=== PATIENT | male | born 1955 | race American Indian/Alaskan Native ===

== ENCOUNTER 2019-05-13 13:53 | Inpatient (IN) | payer OTHER ==
[2019-05-13] MEDS ORDERED: NACL 0.9% 500 ML 500 ML IV ONE (14:02)
[2019-05-13] MEDS ORDERED: NACL 0.9% 1000 ML IV ONE (14:17)
[2019-05-13] MEDS ORDERED: TYLENOL PO ONE (14:18)
[2019-05-13 14:30] LABS: Basophils # (Auto) 0.1 K/mm3 (0.0-0.1); Eosinophils % (Auto) 0.4 % (0.0-4.3); Hematocrit 42.5 % (35.5-45.6); Hemoglobin 14.5 gm/dl (11.8-15.2); Lymphocytes # (Auto) 0.8 K/mm3 (1.2-5.4); Lymphocytes % (Auto) 8.1 % (13.4-35.0); Mean Corpuscular HGB Conc 34 % (32-34); Mean Corpuscular Volume 82 fl (84-94); Monocytes # (Auto) 0.6 K/mm3 (0.0-0.8); Monocytes % (Auto) 5.8 % (0.0-7.3); Platelet Count 201 K/mm3 (140-440); Red Blood Count 5.16 M/mm3 (3.65-5.03); Red Cell Distribution Width 13.8 % (13.2-15.2)
[2019-05-13 14:39] LABS: INR 1.18 (0.87-1.13)
[2019-05-13 14:52] LABS: Albumin 3.9 g/dL (3.9-5); Calcium 9.8 mg/dL (8.4-10.2)
[2019-05-13] MEDS ORDERED: ZOSYN/NS 4.5GM/100ML 4.5 GM/100 ML VIAL IV ONE (15:09)
[2019-05-13 15:10] LABS: Bacteria,Urine 4+ /HPF (Negative); Bilirubin,Urine NEG (Negative); Blood,Urine MOD (Negative); Color,Urine Amber (Yellow); Mucus,Urine FEW /HPF
[2019-05-13 15:11] LABS: WBC,Urine > 182.0 /HPF (0.0-6.0)
--- NOTE | 2019-05-13 15:34 | Emergency Department Report ---
ED Fever HPI - General Chief Complaint: Abdominal Pain Stated Complaint: ABD PAIN Time Seen by Provider: 05/13/19 14:15 Source: patient, old records Exam Limitations: no limitations - History of Present Illness Initial Comments: 64-year-old male with a past medical history of non-ST. Diabetes and elevated cholesterol currently on metformin and atorvastatin presents to the hospital complaints of left-sided flank pain and abdominal pain for the past 4 days. Patient thought he was constipated and took a laxative 3 days ago. Last bowel movement was 2 days ago. Patient has continued to have an spell has had a flank pain that is mild to moderate in intensity. He has been having hot flashes and sweats suggestive of fever. He's had nausea with decreased by mouth intake wi thout vomiting. He denies dysuria but has itching sensation when he urinates it was cloudy malodorous urine. No previous abdominal surgeries reported. ED Review of Systems ROS: Stated complaint: ABD PAIN Other details as noted in HPI Comment: All other systems reviewed and negative ED Past Medical Hx - Past Medical History Previous Medical History?: Yes Hx Diabetes: Yes Hx HIV: No Additional medical history: Elevated cholesterol - Surgical History Past Surgical History?: No - Social History Smoking Status: Never Smoker Substance Use Type: None ED Physical Exam - General Limitations: No Limitations - Other Other exam information: General: No acute distress Head: Atraumatic normocephalic Eyes: Normal appearance, pupils equal reactive to light, extraocular movements intact ENT: Normal oropharynx Neck: Normal appearance, no C-spine tenderness, no meningismus Chest: Clear to auscultation bilaterally, no wheezes, rales, or crackles Cardiovascular: Regular rate and rhythm Abdomen: Soft, nondistended, left-sided abdominal tenderness, no rebound or guarding, normal bowel sounds Back: Normal inspection, nontender Extremity: Normal inspection, no deformity, full range of motion. No CVA tenderness Neuro: Alert and oriented 3, speech clear, no gross motor or sensory deficit Skin: No rash, warmth, or erythema ED Course Vital Signs 05/13/19 05/13/19 05/13/19 14:02 14:14 14:17 Temperature 100.1 F H 100.5 F H Pulse Rate 122 H 107 H Respiratory 20 16 Rate Blood Pressure 118/81 Blood Pressure 122/67 118/81 [Right] O2 Sat by Pulse 96 98 Oximetry 05/13/19 05/13/19 14:28 14:39 Temperature Pulse Rate Respiratory 18 18 Rate Blood Pressure Blood Pressure [Right] O2 Sat by Pulse 100 Oximetry ED Medical Decision Making - Lab Data Result diagrams: 05/13/19 14:07 05/13/19 Unknown Lab Results 05/13/19 05/13/19 05/13/19 Range/Units 14:07 14:07 14:07 WBC 10.5 (4.5-11.0) K/mm3 RBC 5.16 H (3.65-5.03) M/mm3 Hgb 14.5 (11.8-15.2) gm/dl Hct 42.5 (35.5-45.6) % MCV 82 L (84-94) fl MCH 28 (28-32) pg MCHC 34 (32-34) % RDW 13.8 (13.2-15.2) % Plt Count 201 (140-440) K/mm3 Lymph % (Auto) 8.1 L (13.4-35.0) % [place] % (Auto) 5.8 (0.0-7.3) % Eos % (Auto) 0.4 (0.0-4.3) % Baso % (Auto) 1.0 (0.0-1.8) % Lymph # 0.8 L (1.2-5.4) K/mm3 [place] # 0.6 (0.0-0.8) K/mm3 Eos # 0.0 (0.0-0.4) K/mm3 Baso # 0.1 (0.0-0.1) K/mm3 Seg Neutrophils % 84.7 H (40.0-70.0) % Seg Neutrophils # 8.9 H (1.8-7.7) K/mm3 PT 14.7 (12.2-14.9) Sec. INR 1.18 H (0.87-1.13) VBG pH (7.320-7.420) Sodium (137-145) mmol/L Potassium (3.6-5.0) mmol/L Chloride (98-107) mmol/L Carbon Dioxide (22-30) mmol/L Anion Gap mmol/L BUN (9-20) mg/dL Creatinine (0.8-1.5) mg/dL Estimated GFR ml/min BUN/Creatinine Ratio % Glucose (75-100) mg/dL Lactic Acid 2.50 H* (0.7-2.0) mmol/L Calcium (8.4-10.2) mg/dL Magnesium (1.7-2.3) mg/dL Total Bilirubin (0.1-1.2) mg/dL AST (5-40) units/L ALT (7-56) units/L Alkaline Phosphatase (35-129) units/L Total Protein (6.3-8.2) g/dL Albumin (3.9-5) g/dL Albumin/Globulin Ratio % Urine Color (Yellow) Urine Turbidity (Clear) Urine pH (5.0-7.0) Ur Specific [place] (1.003-1.030) Urine Protein (Negative) mg/dL Urine Glucose (UA) (Negative) mg/dL Urine Ketones (Negative) mg/dL Urine Blood (Negative) Urine Nitrite (Negative) Urine Bilirubin (Negative) Urine Urobilinogen (<2.0) mg/dL Ur Leukocyte Esterase (Negative) Urine WBC (Auto) (0.0-6.0) /HPF Urine RBC (Auto) (0.0-6.0) /HPF U Epithel Cells (Auto) (0-13.0) /HPF Urine Bacteria (Auto) (Negative) /HPF Urine WBC Clumps /HPF Ur Transition Epith Cell /HPF Urine Mucus /HPF 05/13/19 05/13/19 05/13/19 Range/Units 14:07 14:43 14:55 WBC (4.5-11.0) K/mm3 RBC (3.65-5.03) M/mm3 Hgb (11.8-15.2) gm/dl Hct (35.5-45.6) % MCV (84-94) fl MCH (28-32) pg MCHC (32-34) % RDW (13.2-15.2) % Plt Count (140-440) K/mm3 Lymph % (Auto) (13.4-35.0) % [place] % (Auto) (0.0-7.3) % Eos % (Auto) (0.0-4.3) % Baso % (Auto) (0.0-1.8) % Lymph # (1.2-5.4) K/mm3 [place] # (0.0-0.8) K/mm3 Eos # (0.0-0.4) K/mm3 Baso # (0.0-0.1) K/mm3 Seg Neutrophils % (40.0-70.0) % Seg Neutrophils # (1.8-7.7) K/mm3 PT (12.2-14.9) Sec. INR (0.87-1.13) VBG pH 7.472 H (7.320-7.420) Sodium (137-145) mmol/L Potassium (3.6-5.0) mmol/L Chloride (98-107) mmol/L Carbon Dioxide (22-30) mmol/L Anion Gap mmol/L BUN (9-20) mg/dL Creatinine (0.8-1.5) mg/dL Estimated GFR ml/min BUN/Creatinine Ratio % Glucose (75-100) mg/dL Lactic Acid 2.10 H* (0.7-2.0) mmol/L Calcium (8.4-10.2) mg/dL Magnesium (1.7-2.3) mg/dL Total Bilirubin (0.1-1.2) mg/dL AST (5-40) units/L ALT (7-56) units/L Alkaline Phosphatase (35-129) units/L Total Protein (6.3-8.2) g/dL Albumin (3.9-5) g/dL Albumin/Globulin Ratio % Urine Color [place] (Yellow) Urine Turbidity Cloudy (Clear) Urine pH 5.0 (5.0-7.0) Ur Specific [place] 1.016 (1.003-1.030) Urine Protein 100 mg/dl (Negative) mg/dL Urine Glucose (UA) Neg (Negative) mg/dL Urine Ketones Neg (Negative) mg/dL Urine Blood Mod (Negative) Urine Nitrite Pos (Negative) Urine Bilirubin Neg (Negative) Urine Urobilinogen 4.0 (<2.0) mg/dL Ur Leukocyte Esterase Lg (Negative) Urine WBC (Auto) > 182.0 H (0.0-6.0) /HPF Urine RBC (Auto) 14.0 (0.0-6.0) /HPF U Epithel Cells (Auto) < 1.0 (0-13.0) /HPF Urine Bacteria (Auto) 4+ (Negative) /HPF Urine WBC Clumps 2+ /HPF Ur Transition Epith Cell 2 /HPF Urine Mucus Few /HPF 05/13/19 05/13/19 Range/Units 15:03 Unknown WBC (4.5-11.0) K/mm3 RBC (3.65-5.03) M/mm3 Hgb (11.8-15.2) gm/dl Hct (35.5-45.6) % MCV (84-94) fl MCH (28-32) pg MCHC (32-34) % RDW (13.2-15.2) % Plt Count (140-440) K/mm3 Lymph % (Auto) (13.4-35.0) % [place] % (Auto) (0.0-7.3) % Eos % (Auto) (0.0-4.3) % Baso % (Auto) (0.0-1.8) % Lymph # (1.2-5.4) K/mm3 [place] # (0.0-0.8) K/mm3 Eos # (0.0-0.4) K/mm3 Baso # (0.0-0.1) K/mm3 Seg Neutrophils % (40.0-70.0) % Seg Neutrophils # (1.8-7.7) K/mm3 PT (12.2-14.9) Sec. INR (0.87-1.13) VBG pH (7.320-7.420) Sodium 136 L (137-145) mmol/L Potassium 3.3 L (3.6-5.0) mmol/L Chloride 96.0 L (98-107) mmol/L Carbon Dioxide 22 (22-30) mmol/L Anion Gap 21 mmol/L BUN 21 H (9-20) mg/dL Creatinine 1.6 H (0.8-1.5) mg/dL Estimated GFR 53 ml/min BUN/Creatinine Ratio 13 % Glucose 133 H (75-100) mg/dL Lactic Acid (0.7-2.0) mmol/L Calcium 9.8 (8.4-10.2) mg/dL Magnesium 2.20 (1.7-2.3) mg/dL Total Bilirubin 1.40 H (0.1-1.2) mg/dL AST 25 (5-40) units/L ALT 21 (7-56) units/L Alkaline Phosphatase 91 (35-129) units/L Total Protein 8.6 H (6.3-8.2) g/dL Albumin 3.9 (3.9-5) g/dL Albumin/Globulin Ratio 0.8 % Urine Color (Yellow) Urine Turbidity (Clear) Urine pH (5.0-7.0) Ur Specific [place] (1.003-1.030) Urine Protein (Negative) mg/dL Urine Glucose (UA) (Negative) mg/dL Urine Ketones (Negative) mg/dL Urine Blood (Negative) Urine Nitrite (Negative) Urine Bilirubin (Negative) Urine Urobilinogen (<2.0) mg/dL Ur Leukocyte Esterase (Negative) Urine WBC (Auto) (0.0-6.0) /HPF Urine RBC (Auto) (0.0-6.0) /HPF U Epithel Cells (Auto) (0-13.0) /HPF Urine Bacteria (Auto) (Negative) /HPF Urine WBC Clumps /HPF Ur Transition Epith Cell /HPF Urine Mucus /HPF - EKG Data -: EKG Interpreted by Nv EKG shows normal: sinus rhythm, axis (qrs 26), QRS complexes (qrsd 91), ST-T waves (no stemi) Rate: tachycardia (103) - Radiology Data Radiology results: report reviewed CT abdomen pelvis wo con INDICATION: MAIN: started Tuesday, knot in left sided abd, pain, fever. TECHNIQUE: All CT scans at this location are performed using CT dose reduction for ALARA by means of automated exposure control. COMPARISON: None available. FINDINGS: Mild atelectasis in the lung bases. Liver, gallbladder, spleen and pancreas are negative on this noncontrast exam. Tiny, nonobstructing calculi in both kidneys. Neither kidney is hydronephrotic. Pelvis Normal appendix. Urinary bladder and distal ureters are negative. Minimal sigmoid diverticulosis but no free fluid or inflammation. IMPRESSION: 1. Tiny, nonobstructing renal calculi bilaterally. No ureteral obstruction. 2. No acute abnormalities. CHEST 1 VIEW INDICATION: possible Sepsis COMPARISON: None FINDINGS: Support devices: None Heart: Normal Lungs/Pleura: No acute pulmonary or pleural findings. IMPRESSION: 1. Negative study. - Medical Decision Making + uti/sepsis cultures pending ct unremarkable zosyn, ns, tylenol, and toradol in ed - Differential Diagnosis UTI, diverticulitis, constipation Critical Care Time: No Critical care attestation.: If time is entered above; I have spent that time in minutes in the direct care of this critically ill patient, excluding procedure time. ED Disposition Clinical Impression: UTI (urinary tract infection), Renal insufficiency, Non-insulin dependent type 2 diabetes mellitus Disposition: OP ADMIT IP TO THIS HOSP Is pt being admited?: Yes Condition: Stable Time of Disposition: 16:24
--- NOTE | 2019-05-13 15:52 | XRay Report ---
CHEST 1 VIEW INDICATION: possible Sepsis COMPARISON: None FINDINGS: Support devices: None Heart: Normal Lungs/Pleura: No acute pulmonary or pleural findings. IMPRESSION: 1. Negative study. Signer Name: Keaton Montana MD Signed: 05/13/2019 3:48 PM Workstation Name: [id number]
--- NOTE | 2019-05-13 16:03 | Cat Scan Report ---
CT abdomen pelvis wo con INDICATION: MAIN: started Tuesday, knot in left sided abd, pain, fever. TECHNIQUE: All CT scans at this location are performed using CT dose reduction for ALARA by means of automated e xposure control. COMPARISON: None available. FINDINGS: Mild atelectasis in the lung bases. Liver, gallbladder, spleen and pancreas are negative on this nonc ontrast exam. Tiny, nonobstructing calculi in both kidneys. Neither kidney is hydronephrotic. Pelvis Normal appendix. Urinary bladder and distal ureters are negative. Minimal sigmoid diverticulosis but no free fluid or inflammation. IMPRESSION: 1. Tiny, nonobstructing renal calculi bilaterally. No ureteral obstruction. 2. No acute abnormalities. Signer Name: Keaton Montana MD Signed: 05/13/2019 3:58 PM Workstation Name: [id number] [email or web address] [id number]
[2019-05-13] MEDS ORDERED: TORADOL IV ONE (16:23)
[2019-05-13] MEDS ORDERED: K-DUR PO ONE (16:29)
[2019-05-13] MEDS ORDERED: DILAUDID IV PRN (20:21)
[2019-05-13] MEDS ORDERED: SODIUM CHLORIDE FLUSH SYRINGE 10 ML IV PRN (20:21)
[2019-05-13] MEDS ORDERED: ZOFRAN IV PRN (20:21)
[2019-05-13] MEDS ORDERED: TYLENOL PO PRN (20:21)
[2019-05-13] MEDS ORDERED: LOVENOX SUB-Q SCH (21:00)
[2019-05-13] MEDS: LOVENOX SUB-Q SCH (21:00)
[2019-05-13] MEDS: ROCEPHIN/NS 2 GM/100 ML 2 GM/100 ML BAG IV SCH (21:51)
[2019-05-13] MEDS: SODIUM CHLORIDE FLUSH SYRINGE 10 ML IV SCH (22:39)
[2019-05-13] MEDS ORDERED: PERCOCET 5/325 ONE (22:44)
[2019-05-13] MEDS ORDERED: LOVENOX SUB-Q ONE (22:44)
[2019-05-13] MEDS: PERCOCET 5/325 PO PRN (22:46)
[2019-05-14] MEDS: NACL 0.9% 1000 ML 1,000 ML IV SCH ×3 (00:52→21:26)
[2019-05-14 05:55] LABS: Basophils % (Auto) 0.2 % (0.0-1.8); Eosinophils # (Auto) 0.1 K/mm3 (0.0-0.4); Eosinophils % (Auto) 0.8 % (0.0-4.3); Hematocrit 34.9 % (35.5-45.6); Hemoglobin 11.8 gm/dl (11.8-15.2); Lymphocytes # (Auto) 0.7 K/mm3 (1.2-5.4); Lymphocytes % (Auto) 8.5 % (13.4-35.0); Mean Corpuscular HGB Conc 34 % (32-34); Mean Corpuscular Volume 83 fl (84-94); Monocytes % (Auto) 11.3 % (0.0-7.3); Platelet Count 187 K/mm3 (140-440); Red Blood Count 4.21 M/mm3 (3.65-5.03); Red Cell Distribution Width 14.2 % (13.2-15.2)
[2019-05-14 06:19] LABS: Alanine Aminotransferase 23 units/L (7-56); Albumin 2.9 g/dL (3.9-5); BUN/Creatinine Ratio 11; Blood Urea Nitrogen 14 mg/dL (9-20); Calcium 8.4 mg/dL (8.4-10.2); Hemolysis Index 0
--- NOTE | 2019-05-14 07:23 | History and Physical Report ---
History of Present Illness Date of examination: 05/13/19 Date of admission: 05/13/19 20:21 Chief complaint: L flank pain for 3 days History of present illness: 64-year-old male with a past medical history of Diabetes and elevated cholesterol currently on metformin and atorvastatin presents to the hospital complaints of left-sided flank pain and abdominal pain for the past 4 days. Patient thought he was constipated and took a laxative 3 days ago. Last bowel movement was 2 days ago. Patient has continued to have an spell has had a flank pain that is mild to moderate in intensity. He has been having hot flashes and sweats suggestive of fever. He's had nausea with decreased by mouth intake without vomiting. He denies dysuria but has itching sensation when he urinates it was cloudy malodorous urine. No previous abdominal surgeries reported. Past Medical History Previous Medical History?: Yes Diabetes: Yes Elevated cholesterol Surgical History Past Surgical History?: No Social History Smoking Status: Never Smoker Substance Use Type: None Family history Htn Review of Systems ROS: Stated complaint: ABD PAIN Other details as noted in HPI Comment: All other systems reviewed and negative Medications and Allergies Allergies Allergy/AdvReac Type Severity Reaction Status Date / Time No Known Allergies Allergy Verified 05/13/19 14:24 Active Meds: Active Medications Acetaminophen (Tylenol) 650 mg PO Q4H PRN PRN Reason: Pain MILD(1-3)/Fever >100.5/GUEVARA Enoxaparin Sodium (Lovenox) 40 mg SUB-Q QDAY@2200 [facility] Hydromorphone HCl (Dilaudid) 0.5 mg IV Q3H PRN PRN Reason: Pain , Severe (7-10) Sodium Chloride (Nacl 0.9% 1000 Ml) 1,000 mls @ 100 mls/hr IV DIRECT [facility] Last Admin: 05/14/19 00:52 Dose: 100 mls/hr Documented by: Ceftriaxone Sodium (Rocephin/Ns 2 Gm/100 Ml) 2 gm in 100 mls @ 200 mls/hr IV Q24HR@2200 [facility]; Protocol Last Infusion: 05/13/19 23:57 Dose: Infused Documented by: Ondansetron HCl (Zofran) 4 mg IV Q8H PRN PRN Reason: Nausea And Vomiting Oxycodone/Acetaminophen (Percocet 5/325) 1 tab PO Q6H PRN PRN Reason: Pain, Moderate (4-6) Last Admin: 05/13/19 22:46 Dose: 1 tab Documented by: Sodium Chloride (Sodium Chloride Flush Syringe 10 Ml) 10 ml IV BID MADELINE Last Admin: 05/13/19 22:39 Dose: 10 ml Documented by: Sodium Chloride (Sodium Chloride Flush Syringe 10 Ml) 10 ml IV PRN PRN PRN Reason: LINE FLUSH Exam - Constitutional Vitals: Temp Pulse Resp BP Pulse Ox 99.0 F 93 H 24 112/75 98 05/14/19 04:40 05/14/19 04:40 05/14/19 04:40 05/14/19 04:40 05/14/19 04:40 General appearance: Present: mild distress, well-nourished - EENT Eyes: Present: PERRL ENT: hearing intact, clear oral mucosa - Neck Neck: Present: supple, normal ROM - Respiratory Respiratory effort: normal Respiratory: bilateral: CTA - Cardiovascular Heart rate: 78 Rhythm: regular Heart Sounds: Present: S1 & S2. Absent: rub, click - Extremities Extremities: no ischemia, pulses intact, pulses symmetrical, No edema Peripheral Pulses: within normal limits - Abdominal General gastrointestinal: Present: soft, tender, non-distended, normal bowel sounds Localized gastrointestinal: tender: LLQ (Left flank) Male genitourinary: Present: normal - Rectal Rectal Exam: deferred - Integumentary Integumentary: Present: clear, warm, dry - Musculoskeletal Musculoskeletal: gait normal, strength equal bilaterally - Psychiatric Psychiatric: appropriate mood/affect, intact judgment & insight - Neurologic Neurologic: CNII-XII intact, moves all extremities - Allied Health Allied health notes reviewed: nursing, case management Results - Labs CBC & Chem 7: 05/14/19 05:31 05/14/19 05:31 Labs: Laboratory Last Values WBC 8.7 K/mm3 (4.5-11.0) 05/14/19 05:31 RBC 4.21 M/mm3 (3.65-5.03) 05/14/19 05:31 Hgb 11.8 gm/dl (11.8-15.2) 05/14/19 05:31 Hct 34.9 % (35.5-45.6) L D 05/14/19 05:31 MCV 83 fl (84-94) L 05/14/19 05:31 MCH 28 pg (28-32) 05/14/19 05:31 MCHC 34 % (32-34) 05/14/19 05:31 RDW 14.2 % (13.2-15.2) 05/14/19 05:31 Plt Count 187 K/mm3 (140-440) 05/14/19 05:31 Lymph % (Auto) 8.5 % (13.4-35.0) L 05/14/19 05:31 [place] % (Auto) 11.3 % (0.0-7.3) H 05/14/19 05:31 Eos % (Auto) 0.8 % (0.0-4.3) 05/14/19 05:31 Baso % (Auto) 0.2 % (0.0-1.8) 05/14/19 05:31 Lymph # 0.7 K/mm3 (1.2-5.4) L 05/14/19 05:31 [place] # 1.0 K/mm3 (0.0-0.8) H 05/14/19 05:31 Eos # 0.1 K/mm3 (0.0-0.4) 05/14/19 05:31 Baso # 0.0 K/mm3 (0.0-0.1) 05/14/19 05:31 Seg Neutrophils % 79.2 % (40.0-70.0) H 05/14/19 05:31 Seg Neutrophils # 6.9 K/mm3 (1.8-7.7) 05/14/19 05:31 PT 14.7 Sec. (12.2-14.9) 05/13/19 14:07 INR 1.18 (0.87-1.13) H 05/13/19 14:07 VBG pH 7.472 (7.320-7.420) H 05/13/19 14:07 Sodium 141 mmol/L (137-145) 05/14/19 05:31 Potassium 4.0 mmol/L (3.6-5.0) D 05/14/19 05:31 Chloride 105.1 mmol/L (98-107) 05/14/19 05:31 Carbon Dioxide 21 mmol/L (22-30) L 05/14/19 05:31 19 mmol/L 05/14/19 05:31 BUN 14 mg/dL (9-20) 05/14/19 05:31 1.3 mg/dL (0.8-1.5) 05/14/19 05:31 Estimated GFR > 60 ml/min 05/14/19 05:31 11 % 05/14/19 05:31 Glucose 101 mg/dL (75-100) H 05/14/19 05:31 5.8 % (4-6) 05/13/19 20:23 Lactic Acid 1.30 mmol/L (0.7-2.0) 05/13/19 16:10 Calcium 8.4 mg/dL (8.4-10.2) 05/14/19 05:31 Magnesium 2.20 mg/dL (1.7-2.3) 05/13/19 15:03 0.70 mg/dL (0.1-1.2) 05/14/19 05:31 AST 23 units/L (5-40) 05/14/19 05:31 ALT 23 units/L (7-56) 05/14/19 05:31 88 units/L (35-129) 05/14/19 05:31 6.9 g/dL (6.3-8.2) 05/14/19 05:31 2.9 g/dL (3.9-5) L 05/14/19 05:31 0.7 % 05/14/19 05:31 [place] (Yellow) 05/13/19 14:43 Cloudy (Clear) 05/13/19 14:43 5.0 (5.0-7.0) 05/13/19 14:43 Ur Specific [place] 1.016 (1.003-1.030) 05/13/19 14:43 100 mg/dl mg/dL (Negative) 05/13/19 14:43 Neg mg/dL (Negative) 05/13/19 14:43 Neg mg/dL (Negative) 05/13/19 14:43 Mod (Negative) 05/13/19 14:43 Pos (Negative) 05/13/19 14:43 Neg (Negative) 05/13/19 14:43 4.0 mg/dL (<2.0) 05/13/19 14:43 Ur Leukocyte Esterase Lg (Negative) 05/13/19 14:43 > 182.0 /HPF (0.0-6.0) H 05/13/19 14:43 14.0 /HPF (0.0-6.0) 05/13/19 14:43 U Epithel Cells (Auto) < 1.0 /HPF (0-13.0) 05/13/19 14:43 4+ /HPF (Negative) 05/13/19 14:43 2+ /HPF 05/13/19 14:43 Ur Transition Epith Cell 2 /HPF 05/13/19 14:43 Few /HPF 05/13/19 14:43 Short CBC 05/13/19 05/14/19 Range/Units 14:07 05:31 WBC 10.5 8.7 (4.5-11.0) K/mm3 Hgb 14.5 11.8 (11.8-15.2) gm/dl Hct 42.5 34.9 L D (35.5-45.6) % Plt Count 201 187 (140-440) K/mm3 BMP 05/13/19 05/14/19 Unknown 05:31 Sodium 136 L 141 Potassium 3.3 L 4.0 D Chloride 96.0 L 105.1 Carbon Dioxide 22 21 L BUN 21 H 14 Creatinine 1.6 H 1.3 Glucose 133 H 101 H Calcium 9.8 8.4 Liver Function 05/13/19 05/14/19 Range/Units Unknown 05:31 Total Bilirubin 1.40 H 0.70 (0.1-1.2) mg/dL AST 25 23 (5-40) units/L ALT 21 23 (7-56) units/L Alkaline Phosphatase 91 88 (35-129) units/L Albumin 3.9 2.9 L (3.9-5) g/dL Urine 05/13/19 Range/Units 14:43 Urine Color [place] (Yellow) Urine pH 5.0 (5.0-7.0) Ur Specific [place] 1.016 (1.003-1.030) Urine Protein 100 mg/dl (Negative) mg/dL Urine Glucose (UA) Neg (Negative) mg/dL - Imaging and Cardiology EKG: report reviewed CT scan - abdomen: report reviewed Imaging and Cardiology: CT Abdomen IMPRESSION: 1. Tiny, nonobstructing renal calculi bilaterally. No ureteral obstruction. 2. No acute abnormalities Assessment and Plan Advance Directives: Yes (Full code) VTE prophylaxis?: Chemical Plan of care discussed with patient/family: Yes - Patient Problems (1) SIRS (systemic inflammatory response syndrome) Current Visit: Yes Status: Acute (2) UTI (urinary tract infection) Current Visit: Yes Status: Acute Qualifiers: Urinary tract infection type: acute pyelonephritis Qualified Code(s): N10 - Acute pyelonephritis Plan to address problem: IV Rocephin pending cultures (3) LELA (acute kidney injury) Current Visit: Yes Status: Acute Plan to address problem: ATN IV fluids for now (4) Hypokalemia Current Visit: Yes Status: Acute Plan to address problem: Suppllemented (5) T2DM (type 2 diabetes mellitus) Current Visit: Yes Status: Chronic Qualifiers: Diabetes mellitus manager terminal insulin use: without half-way use Plan to address problem: Continue coverage Not on any oral hypoglycemics Primary team to check his meds No meds for reconciliation Check A1c (6) DVT prophylaxis Current Visit: Yes Status: Acute Plan to address problem: On Lovenox and GI prophylaxis
[2019-05-14] MEDS: HumaLOG SUB-Q SCH ×4 (08:11→21:28)
[2019-05-14] MEDS: PEPCID IV SCH ×2 (09:52→21:28)
[2019-05-14] MEDS: SODIUM CHLORIDE FLUSH SYRINGE 10 ML IV SCH ×2 (09:53→21:29)
--- NOTE | 2019-05-14 12:28 | Progress Note ---
Assessment and Plan Assessment and plan: -- SIRS (systemic inflammatory response syndrome) Current Visit: Yes Status: Acute --Sepsis secondary to UTI (urinary tract infection) Current Visit: Yes Status: Acute Plan to address problem: urine cultures Gm neg rods. IV Rocephin pending cultures sensitivities -- LELA (acute kidney injury) Current Visit: Yes Status: Acute Plan to address problem: ATN, IV fluids for now, Improvement -- Hypokalemia Current Visit: Yes Status: Acute Plan to address problem: Suppllemented, potassium level is within normal limits -- T2DM (type 2 diabetes mellitus) Current Visit: Yes Status: Chronic Plan to address problem: Continue coverage Not on any oral hypoglycemics A1c 5.8 --Moderate malnutrition ; Nutrition supplements and supportive care --DVT prophylaxis Current Visit: Yes Status: Acute . Plan to address problem: On Lovenox and GI prophylaxis The closely and adjust the management as needed Plan of care is reviewed with the patient and his nurse Disposition; f/u culture sensitivities, DC tomorrow if stable History Interval history: Patient seen and examined medical records reviewed Patient was admitted with low-grade fever, tachycardia, urinary symptoms Urine culture is positive for Escherichia coli Patient continues to have burning micturition, abdominal discomfort Denies nausea or vomiting Vital signs noted Hospitalist Physical - Constitutional Vitals: Temp Pulse Resp BP Pulse Ox 99.0 F 93 H 24 112/75 98 05/14/19 04:40 05/14/19 04:40 05/14/19 04:40 05/14/19 04:40 05/14/19 04:40 General appearance: Present: no acute distress, well-nourished - EENT Eyes: Present: PERRL, EOM intact - Neck Neck: Present: supple, normal ROM - Respiratory Respiratory effort: normal Respiratory: bilateral: diminished, negative: rales, rhonchi, wheezing - Cardiovascular Rhythm: regular Heart Sounds: Present: S1 & S2 - Extremities Extremities: no ischemia, No edema - Abdominal General gastrointestinal: soft, non-tender, non-distended, normal bowel sounds - Integumentary Integumentary: Present: clear, warm - Psychiatric Psychiatric: appropriate mood/affect, cooperative - Neurologic Neurologic: CNII-XII intact, moves all extremities Results - Labs CBC & Chem 7: 05/14/19 05:31 05/15/19 05:36 Labs: Laboratory Last Values WBC 8.7 K/mm3 (4.5-11.0) 05/14/19 05:31 RBC 4.21 M/mm3 (3.65-5.03) 05/14/19 05:31 Hgb 11.8 gm/dl (11.8-15.2) 05/14/19 05:31 Hct 34.9 % (35.5-45.6) L D 05/14/19 05:31 MCV 83 fl (84-94) L 05/14/19 05:31 MCH 28 pg (28-32) 05/14/19 05:31 MCHC 34 % (32-34) 05/14/19 05:31 RDW 14.2 % (13.2-15.2) 05/14/19 05:31 Plt Count 187 K/mm3 (140-440) 05/14/19 05:31 Lymph % (Auto) 8.5 % (13.4-35.0) L 05/14/19 05:31 [place] % (Auto) 11.3 % (0.0-7.3) H 05/14/19 05:31 Eos % (Auto) 0.8 % (0.0-4.3) 05/14/19 05:31 Baso % (Auto) 0.2 % (0.0-1.8) 05/14/19 05:31 Lymph # 0.7 K/mm3 (1.2-5.4) L 05/14/19 05:31 [place] # 1.0 K/mm3 (0.0-0.8) H 05/14/19 05:31 Eos # 0.1 K/mm3 (0.0-0.4) 05/14/19 05:31 Baso # 0.0 K/mm3 (0.0-0.1) 05/14/19 05:31 Seg Neutrophils % 79.2 % (40.0-70.0) H 05/14/19 05:31 Seg Neutrophils # 6.9 K/mm3 (1.8-7.7) 05/14/19 05:31 PT 14.7 Sec. (12.2-14.9) 05/13/19 14:07 INR 1.18 (0.87-1.13) H 05/13/19 14:07 VBG pH 7.472 (7.320-7.420) H 05/13/19 14:07 Sodium 141 mmol/L (137-145) 05/14/19 05:31 Potassium 4.0 mmol/L (3.6-5.0) D 05/14/19 05:31 Chloride 105.1 mmol/L (98-107) 05/14/19 05:31 Carbon Dioxide 21 mmol/L (22-30) L 05/14/19 05:31 19 mmol/L 05/14/19 05:31 BUN 14 mg/dL (9-20) 05/14/19 05:31 1.3 mg/dL (0.8-1.5) 05/14/19 05:31 Estimated GFR > 60 ml/min 05/14/19 05:31 11 % 05/14/19 05:31 Glucose 101 mg/dL (75-100) H 05/14/19 05:31 POC Glucose 95 (70-105) 05/14/19 11:30 5.8 % (4-6) 05/13/19 20:23 Lactic Acid 1.30 mmol/L (0.7-2.0) 05/13/19 16:10 Calcium 8.4 mg/dL (8.4-10.2) 05/14/19 05:31 Magnesium 2.20 mg/dL (1.7-2.3) 05/13/19 15:03 0.70 mg/dL (0.1-1.2) 05/14/19 05:31 AST 23 units/L (5-40) 05/14/19 05:31 ALT 23 units/L (7-56) 05/14/19 05:31 88 units/L (35-129) 05/14/19 05:31 6.9 g/dL (6.3-8.2) 05/14/19 05:31 2.9 g/dL (3.9-5) L 05/14/19 05:31 0.7 % 05/14/19 05:31 Ebony (Yellow) 05/13/19 14:43 Cloudy (Clear) 05/13/19 14:43 5.0 (5.0-7.0) 05/13/19 14:43 Ur Specific [place] 1.016 (1.003-1.030) 05/13/19 14:43 100 mg/dl mg/dL (Negative) 05/13/19 14:43 Neg mg/dL (Negative) 05/13/19 14:43 Neg mg/dL (Negative) 05/13/19 14:43 Mod (Negative) 05/13/19 14:43 Pos (Negative) 05/13/19 14:43 Neg (Negative) 05/13/19 14:43 4.0 mg/dL (<2.0) 05/13/19 14:43 Ur Leukocyte Esterase Lg (Negative) 05/13/19 14:43 > 182.0 /HPF (0.0-6.0) H 05/13/19 14:43 14.0 /HPF (0.0-6.0) 05/13/19 14:43 U Epithel Cells (Auto) < 1.0 /HPF (0-13.0) 05/13/19 14:43 4+ /HPF (Negative) 05/13/19 14:43 2+ /HPF 05/13/19 14:43 Ur Transition Epith Cell 2 /HPF 05/13/19 14:43 Few /HPF 05/13/19 14:43 Active Medications - Current Medications Current Medications: Generic Name Dose Route Start Last Admin Trade Name Freq PRN Reason Stop Dose Admin Acetaminophen 650 mg 05/13/19 20:21 Tylenol PO Q4H PRN Pain MILD(1-3)/Fever >100.5/GUEVARA Enoxaparin Sodium 40 mg 05/13/19 21:00 05/13/19 21:00 Lovenox SUB-Q Not Given QDAY@2200 MADELINE Famotidine 20 mg 05/14/19 10:00 05/14/19 09:52 Pepcid IV 20 mg BID MADELINE Administration Hydromorphone HCl 0.5 mg 05/13/19 20:21 Dilaudid IV Q3H PRN Pain , Severe (7-10) Sodium Chloride 1,000 mls @ 100 mls/hr 05/13/19 21:00 05/14/19 11:28 Nacl 0.9% 1000 Ml IV 100 mls/hr DIRECT MADELINE Administration Ceftriaxone Sodium 2 gm in 100 mls @ 200 mls/hr 05/13/19 21:00 05/13/19 23:57 Rocephin/Ns 2 Gm/100 Ml IV Infused Q24HR@2200 [facility] Infusion Protocol Insulin Human Lispro 0 unit 05/14/19 08:00 05/14/19 11:29 Humalog SUB-Q Not Given ACHS [facility] Protocol Ondansetron HCl 4 mg 05/13/19 20:21 Zofran IV Q8H PRN Nausea And Vomiting Oxycodone/Acetaminophen 1 tab 05/13/19 20:21 05/13/19 22:46 Percocet 5/325 PO 1 tab Q6H PRN Administration Pain, Moderate (4-6) Sodium Chloride 10 ml 05/13/19 22:00 05/14/19 09:53 Sodium Chloride Flush Syringe 10 Ml IV 10 ml BID MADELINE Administration Sodium Chloride 10 ml 05/13/19 20:21 Sodium Chloride Flush Syringe 10 Ml IV PRN PRN LINE FLUSH
[2019-05-14] MEDS: PERCOCET 5/325 PO PRN (15:03)
[2019-05-14] MEDS: ROCEPHIN/NS 2 GM/100 ML 2 GM/100 ML BAG IV SCH (21:28)
[2019-05-14] MEDS: LOVENOX SUB-Q SCH (21:28)
[2019-05-14] MEDS ORDERED: ALUM-MAG HYDROX-SIMETH 200-200-20MG/5ML PO PRN (23:08)
[2019-05-15 06:35] LABS: BUN/Creatinine Ratio 8; Blood Urea Nitrogen 9 mg/dL (9-20); Calcium 8.5 mg/dL (8.4-10.2); Hemolysis Index 1
[2019-05-15] MEDS: NACL 0.9% 1000 ML 1,000 ML IV SCH (07:59)
[2019-05-15] MEDS: HumaLOG SUB-Q SCH ×2 (08:00→12:47)
[2019-05-15] MEDS: PEPCID IV SCH (10:30)
[2019-05-15] MEDS: SODIUM CHLORIDE FLUSH SYRINGE 10 ML IV SCH (10:31)
[2019-05-15 12:10] VITALS: BP 123/87
--- NOTE | 2019-05-15 15:30 | Discharge Summary ---
Providers - Providers Date of Admission: 05/13/19 20:21 Date of discharge: 05/15/19 Attending physician: LORE HEAD Primary care physician: HUYEN ESCOTO Hospitalization Condition: Stable Pertinent studies: Abdomen/pelvis CT: 1. Tiny, nonobstructing renal calculi bilaterally. No ureteral obstruction. 2. No acute abnormalities. CXR: no infiltrates Hospital course: Discharge diagnosis: --Sepsis secondary to UTI (urinary tract infection) Current Visit: Yes Status: Acute Plan to address problem: urine cultures Gm neg rods. IV Rocephin pending cultures sensitivities -- LELA (acute kidney injury) Current Visit: Yes Status: Acute Plan to address problem: ATN, IV fluids for now, Improvement -- Hypokalemia Current Visit: Yes Status: Acute Plan to address problem: Suppllemented, potassium level is within normal limits -- T2DM (type 2 diabetes mellitus) Current Visit: Yes Status: Chronic Plan to address problem: Continue coverage Not on any oral hypoglycemics A1c 5.8 --Moderate malnutrition ; Nutrition supplements and supportive care Disposition: DC- TO HOME OR SELFCARE Time spent for discharge: 34 minutes Core Measure Documentation - Palliative Care Palliative Care/ Comfort Measures: Not Applicable - Core Measures Any of the following diagnoses?: none Exam - Constitutional Vitals: Temp Pulse Resp BP Pulse Ox 98.6 F 78 15 123/87 98 05/15/19 12:08 05/15/19 12:08 05/15/19 12:08 05/15/19 12:08 05/15/19 12:08 General appearance: Present: no acute distress, well-nourished - EENT Eyes: Present: PERRL ENT: hearing intact, clear oral mucosa - Neck Neck: Present: supple, normal ROM - Respiratory Respiratory effort: normal Respiratory: bilateral: CTA - Cardiovascular Heart Sounds: Present: S1 & S2. Absent: rub, click - Extremities Extremities: pulses symmetrical, No edema Peripheral Pulses: within normal limits - Abdominal General gastrointestinal: Present: soft, non-tender, non-distended, normal bowel sounds - Integumentary Integumentary: Present: clear, warm, dry - Musculoskeletal Musculoskeletal: gait normal, strength equal bilaterally - Psychiatric Psychiatric: appropriate mood/affect, intact judgment & insight - Neurologic Neurologic: CNII-XII intact, moves all extremities Plan Activity: advance as tolerated Weight Bearing Status: Weight Bear as Tolerated Diet: low fat, low salt, diabetic Follow up with: HUYEN ESCOTO MD [Primary Care Provider] - 7 Days Prescriptions: levoFLOXacin [Levaquin] 750 mg PO QDAY #5 tablet
== END 2019-05-15 17:00 | disposition home or self-care (01) | DRG 871 ==
LOC: ED 13:53 → 3A 20:21
PROVIDERS: ADMIT Internal Medicine; ATTEND Internal Medicine
DX: A41.9 Sepsis, unspecified organism (principal); N17.0 Acute kidney failure with tubular necrosis; N39.0 Urinary tract infection, site not specified; N10 Acute pyelonephritis; E44.0 Moderate protein-calorie malnutrition; R65.10 Systemic inflammatory response syndrome (SIRS) of non-infectious origin without acute organ dysfunction; E11.9 Type 2 diabetes mellitus without complications; E78.00 Pure hypercholesterolemia, unspecified; Z82.49 Family history of ischemic heart disease and other diseases of the circulatory system; E87.6 Hypokalemia; Z68.26 Body mass index [BMI] 26.0-26.9, adult; Z79.84 Long term (current) use of oral hypoglycemic drugs
CPT/HCPCS: 36415; 71045; 74176; 80048; 80053; 81001; 82140; 82805; 82962; 83036; 83735; 85025; 85610; 87040; 87076; 87086; 87186; 93005; 93010; G0378; J0696; J1170; J1650; J1885; J2405; J2543; J7030